=== PATIENT | female | born 1945 | race Hispanic/Latino ===

== ENCOUNTER 2025-07-01 21:48 | Emergency (ER) | payer MEDICARE, MEDICAID ==
[~2025-07-01] VITALS: Ht 147.3 cm; Wt 54.4 kg
--- NOTE | 2025-07-01 21:55 | NUR ---
UA CUP PROVIDED
[2025-07-01 23:23] LABS: IMMATURE GRANULOCYTE ABSOLUTE 0.02 K/uL (0-1); NUCLEATED RED BLOOD CELLS 0.0 % (0.0-0.19); PLATELET COUNT (AUTO) 291 K/uL (130-400); RED BLOOD CELL COUNT(AUTO) 4.14 MIL/uL (4.00-5.50); RED CELL DISTRIBUTION WIDTH 11.8 % (11.0-15.5); WHITE BLOOD COUNT (AUTO) 7.5 K/uL (4.8-10.8)
--- NOTE | 2025-07-01 23:27 | NUR ---
PATIENT IN CT SCAN AT THIS TIME.
[2025-07-01 23:32] LABS: CREATININE 0.8 mg/dL (0.5-1.0); GLOMERULAR FILTR. RATE CALC 74.0 mL/min (>90); GLUCOSE,RANDOM 129.0 mg/dL (70-105); SODIUM SERUM 132.0 mmol/L (136-145); UREA NITROGEN, BLOOD 21.0 mg/dL (7-18)
--- NOTE | 2025-07-02 00:10 | HMCIMG ---
EXAM: CT Head Without IV contrast. CLINICAL HISTORY: intermittent severe headaches TECHNIQUE: Axial computed tomography images of the head/brain without intravenous contrast. COMPARISON: None provided. FINDINGS: BRAIN: Chronic microvascular ischemic white matter disease. No acute infarction, intracranial hemorrhage, or mass lesion. VENTRICLES: No hydrocephalus. ORBITS: The orbits are unremarkable. SINUSES AND MASTOIDS: The paranasal sinuses and mastoid air cells are clear. BONES: No fracture. SOFT TISSUES: Unremarkable. IMPRESSION: 1. No acute intracranial findings. /[place]
--- NOTE | 2025-07-02 00:56 | ERN ---
General Chief Complaint: Face Pain/Problem Stated Complaint: SHARP PAIN BILATERAL FACE Time Seen by MD: 21:50 Time Seen by Midlevel: 21:50 Source: patient History of Present Illness Initial Comments 79-year-old female is being brought in by daughter for evaluation of intermittent episodes of sharp pain to bilateral temples and Face. According to both the patient and the daughter who is at bedside patient has been having these episodes for the past week. She has already seen her primary care doctor who was in the process of referring her to a neurologist an ordering a CT scan. Yesterday she was seen at a local hospital where she had blood work and a scan performed that was allegedly normal. She was ultimately discharged home with a benign workup. She had another episode of headache so she decided to report to the ER further evaluation. On arrival she denies having any symptoms. Allergies: Coded Allergies: No Known Allergies (Unverified Allergy, Unknown, 07/01/25) Past Medical History Past Medical History: Arthritis, High Cholesterol, Hypertension, Other Medical History Other: THYROID Past Surgical History: None ROS Dictation CONSTITUTIONAL: Negative except for HPI HEAD/FACE: Negative except for HPI EENT: Negative except for HPI RESPIRATORY: Negative except for HPI GASTROINTESTINAL/ABDOMINAL: Negative except for HPI GENITOURINARY: Negative except for HPI MUSCULOSKELETAL: Negative except for HPI INTEGUMENTARY: Negative except for HPI NEUROLOGICAL/PSYCH: Negative except for HPI HEMATOLOGIC/LYMPHATIC: Negative except for HPI All Systems Negative, Except as noted above. 13 point review of systems assessed and all negative except for above. Physical Exam Physical Exam Dictation Vital Signs reviewed General Appearance: Alert, oriented x 3, no acute distress, well developed, nourished. Head and Face: non-traumatic. Eyes: PERRL, pink conjunctivas, eyelid no trauma, anterior chamber with arcus senilis. Ears: Pinnas intact and no signs of trauma or erythema ear canals clear and no discharge TM no erythema Nose: No discharge, no bleeding. Oropharynx: Mouth normal, tongue pink, pharynx clear,no erythema, tonsils no exudates, no abscesses noted, mucous membrane moist Neck: Supple, non-tender, no thyromegaly, no masses, no JVD, no bruits Breast:Deferred Chest:No tenderness, no crepitus, no paradoxical movement, no retractions Lungs:Clear, well-ventilated, symmetric, no rales, no wheezing, no rhonchi, no stridor, good breath sounds bilaterally Heart: Regular rate, regular rhythm, no murmur, no gallops Vascular: no peripheral edema, Abdomen: Soft, positive bowel sounds, nondistended, no guarding, nontender, no rebound, no masses no hepatomegaly, no splenomegaly, no Ramirez's sign, no hernias. Rectal: Deferred Genital: Deferred Neurological: Normal speech, motor function intact, sensory function intact Musculoskeletal: Neck nontender, full range of motion, back nontender, full range of motion, Extremities: nontender, full range of motion Skin: Color pink, dry, no turgor, no rash, no lacerations, no abrasions, no contusions. Lymphatic: Deferred Results Laboratory and Microbiology Lab and Micro Result Laboratory Tests Test 07/01/25 23:05 White Blood Count 7.5 K/uL (4.8-10.8) Red Blood Count 4.14 MIL/uL (4.00-5.50) Hemoglobin 12.4 g/dL (12.0-16.0) Hematocrit 36.2 % (36-48) Mean Corpuscular Volume 87.4 fL (79-99) Mean Corpuscular Hemoglobin 30.0 pg (27.0-33.0) Mean Corpuscular Hemoglobin Concent 34.3 g/dL (32.0-36.0) Red Cell Distribution Width 11.8 % (11.0-15.5) Platelet Count 291 K/uL (130-400) Mean Platelet Volume 10.4 fL (7.5-10.5) Immature Granulocyte % (Auto) 0.3 % (0-1) Neutrophils (%) (Auto) 54.1 % (40.0-77.0) Lymphocytes (%) (Auto) 30.0 % (21.0-51.0) Monocytes (%) (Auto) 11.0 % (3.0-13.0) Eosinophils (%) (Auto) 3.4 % (0.0-8.0) Basophils (%) (Auto) 1.2 % (0.0-5.0) Neutrophils # (Auto) 4.1 K/uL (1.8-7.7) Lymphocytes # (Auto) 2.3 K/uL (1.0-4.8) Monocytes # (Auto) 0.8 K/uL (0.1-1.0) Eosinophils # (Auto) 0.26 K/uL (0.00-0.70) Basophils # (Auto) 0.09 K/uL (0.00-0.20) Absolute Immature Granulocyte (auto 0.02 K/uL (0-1) Nucleated Red Blood Cells 0.0 % (0.0-0.19) Sodium Level 132 mmol/L (136-145) L Potassium Level 3.4 mmol/L (3.5-5.1) L Chloride Level 93 mmol/L (101-111) L Carbon Dioxide Level 29 mmol/L (21-32) Blood Urea Nitrogen 21 mg/dL (7-18) H Creatinine 0.8 mg/dL (0.5-1.0) Glomerular Filtration Rate Calc 74 mL/min (>90) Random Glucose 129 mg/dL (70-105) H Total Calcium 9.6 mg/dL (8.5-10.1) Labs Reviewed?: Yes MDM MDM: Differential diagnosis: Migraines, cluster headaches, carotid stenosis There are no social concerns with this patient. Prescription drug management Prescriptions will include: None Medical management and examination interpretation discussions were had by me with other qualified healthcare professionals as indicated for the patient's care. ED Course Orders Procedure Category Date Status Time Cbc With Differential LAB 07/01/25 Complete 22:57 Basic Metabolic Panel LAB 07/01/25 Complete 22:57 Ct Head/Brain W/O CT 07/01/25 Resulted Contrast 22:57 Vital Signs Date Time Temp Pulse Resp B/P (MAP) Pulse Ox O2 Delivery O2 Flow Rate FiO2 07/02/25 01:04 64 18 186/93 97 Room Air* 0 21 07/01/25 21:50 97.9 78 18 170/95 97 Room Air DX & DISP Disposition: Discharge Departure Impression: Primary Impression: Headache, unspecified Condition: Stable Additional Instructions: Your blood work today is unremarkable. There were no signs of systemic infection. No signs of anemia. Electrolytes are all unremarkable. Kidney function is normal. CT scan of the head does not show any evidence of an intracranial bleed, tumor, or any other acute abnormality. Referrals: HAYLEE MARCELINO MD (PCP) DENIA LOPEZ MD Time of Disposition: 00:57 I have reviewed the case, and I agree with, Diagnosis and Plan I performed the substantive portion of the visit. I have reviewed and personally made and approve the management plan that is documented in the note by myself or the LEANDRO. I acknowledge for responsibility for the patient's management plan. DREAD RUDD PAC Jul 02, 2025 00:56
[2025-07-02 02:02] VITALS: BP 170/88; PULSE 61; RESP 18; TEMP 98.3; O2SAT 96
== END 2025-07-02 02:10 | disposition home or self-care (01) ==
LOC: EDH 21:48
DX: R51.9 Headache, unspecified (principal); E78.00 Pure hypercholesterolemia, unspecified; I10 Essential (primary) hypertension; M19.90 Unspecified osteoarthritis, unspecified site
CPT/HCPCS: 36415; 70450; 80048; 85025; 99284